=== PATIENT | female | born 1985 | race Caucasian/White ===

== ENCOUNTER 2020-08-14 09:31 | Outpatient (CLI) | payer OTHER | END 2020-08-14 09:36 | disposition home or self-care (01) | LOC: LAB 09:31 | PROVIDERS: ATTEND Internal Medicine Hematology & Oncology | DX: Z20.828 Contact with and (suspected) exposure to other viral communicable diseases (principal); Z03.818 Encounter for observation for suspected exposure to other biological agents ruled out ==

== ENCOUNTER 2020-09-13 11:52 | Outpatient (CLI) | payer OTHER | END 2020-09-13 11:54 | disposition home or self-care (01) | LOC: PPH VACUNA 11:52 | DX: Z23 Encounter for immunization (principal) ==

== ENCOUNTER 2021-06-15 08:00 | Outpatient (CLI) | payer OTHER | END 2021-06-15 08:15 | disposition home or self-care (01) | LOC: PPH VACUNA 08:00 → MAMO-SONO 06-27 08:00 | PROVIDERS: ATTEND Emergency Medicine Pediatric Emergency Medicine | DX: Z23 Encounter for immunization (principal) ==